=== PATIENT | female | born 1965 | race Caucasian/White ===

== ENCOUNTER 2017-01-20 08:11 | Outpatient (CLI) | payer BC ==
[2017-01-20 09:05] LABS: eGFR (African) > 60; eGFR (Non-African) > 60
== END 2017-01-20 08:12 ==
LOC: LAB 08:11
PROVIDERS: ATTEND Family Medicine
DX: Z00.00 Encounter for general adult medical examination without abnormal findings (principal)
CPT/HCPCS: 36415; 80053; 80061

== ENCOUNTER 2017-11-09 14:29 | Outpatient (CLI) | payer BC ==
--- NOTE | 2017-11-09 14:55 | Diagnostic Imaging Report ---
SUDARSHAN HOSKINS [facility] [address] [facility] [address] [place], [place]. [address] Report Submission Date: Nov 09, 2017 2:48:15 PM CDT Patient Study Name: HERBERTH GRANDE Date: Nov 09, 2017 2:34:22 PM CDT Modality Type: DX Gender: F Description: CHEST : 67 Institution: [facility] Physician: SUDARSHAN HOSKINS PA and lateral chest History: Chest pain PA and lateral chest dated November 09, 2017 without prior radiographs for comparison. The cardiomediastinal silhouette is normal. Pulmonary vascularity is normal. Lungs are clear. Impression: No active disease. Electronically signed on Nov 09, 2017 2:48:15 PM CDT by: Debora DIAS
== END 2017-11-09 14:30 ==
LOC: RAD 14:29
PROVIDERS: ATTEND Family Medicine
DX: M54.6 Pain in thoracic spine (principal)
CPT/HCPCS: 71046

== ENCOUNTER 2017-11-28 10:35 | Day surgery (SDC) | payer BC ==
--- NOTE | 2017-11-28 15:15 | GI Report ---
REFERRING PHYSICIAN: Dr. Elda Couch [employer]ING DEALER: Chapin Dennis MD PROCEDURE MEDICATION: Propofol as per anesthesia. INDICATIONS: Patient is a 52-year-old woman who is referred for a screening. This is her first colonoscopy. She denies change in bowel habits or bleeding. She denies a family history of colorectal cancer. Father has had heart surgery. Patient has had a previous cholecystectomy and hysterectomy. PROCEDURE PERFORMED: Colonoscopy. PROCEDURE: An Olympus video colonoscope was advanced to the rectum and slowly advanced all the way to the cecum. The prep was fair. There still was a little bit of residual coating the wall. We lavage a number of areas. The appendiceal orifice and ileocecal valve looked normal. On slow withdrawal, the cecum, ascending colon, and transverse colon with no obvious intraluminal lesions noted. The descending colon and sigmoid with some redundancy but no obvious intraluminal lesions were noted. Retroflexion of the rectum was normal. Patient tolerated the procedure well. FINDINGS: Normal mucosa to the cecum. The prep was fair. RECOMMENDATIONS: 1. Continue a high-fiber diet. 2. Consider re-looking at her colon in 10 years, sooner if clinically indicated. cc: Dr. Elda DIAS
== END 2017-11-28 10:36 ==
LOC: OPSURG 10:35
PROVIDERS: ATTEND Internal Medicine Gastroenterology
DX: Z12.11 Encounter for screening for malignant neoplasm of colon (principal)
CPT/HCPCS: J2001; J2704; J7120; 45378; S1016